=== PATIENT | male | born 1965 | race Caucasian/White ===

== ENCOUNTER 2021-07-08 11:05 | Emergency (ER) | payer OTHER ==
--- NOTE | 2021-07-08 11:13 | ED ---
General Adult HPI - General Stated complaint: Stroke Source: RN notes reviewed, old records reviewed - History of Present Illness Initial comments: Patient is a 55-year-old male with past medical history remarkable for hypertension who presents emergency Department complaining of strokelike symptoms. Last known well was last night prior to going to sleep. Patient states he awoke one time in the middle the night, noticed he had a headache, was unable to stand up but went back to sleep. EMS was called this morning he was on the same location as last night. He currently endorses a mild headache at this time. He endorses left-sided weakness. His no known history of strokes or intracranial process. Accu-Chek was within normal limits upon EMS arrival. He was retching emergency department for strokelike symptoms. He currently denies chest pain, shortness breath, abdominal pain, nausea, vomiting. Denies any visual deficits. Endorses left-sided weakness. - Related Data Allergies Allergy/AdvReac Type Severity Reaction Status Date / Time No Known Allergies Allergy Verified 07/08/21 11:23 Review of Systems ROS Statement: Those systems with pertinent positive or pertinent negative responses have been documented in the HPI. Review of Systems: CONST: Denies fever EYES: Denies blurry vision ENT: Denies nasal congestion C/V: Denies Chest pain RESP: Denies shortness of breath GI: Denies abdominal pain : Denies dysuria SKIN: Denies rash. MSK: Denies joint pain. NEURO: Endorses mild headache. ROS Other: All systems not noted in ROS Statement are negative. General Exam - General Exam Comments Initial Comments: General: Appears in no acute distress. HEAD: Normal with no signs of head trauma. EYES: PERRLA, EOMI, conjunctiva normal, no discharge. Pupils are 3 mm bilaterally. There are Ava. ENT: Hearing grossly intact, normal oropharynx. RESPIRATORY: Clear breath sounds bilaterally. No wheezes, rales, or rhonchi. C/V: Regular rate and rhythm. S1 and S2 auscultated, no edema, peripheral pulses 2+ and intact throughout ABD: Abd is soft, nontender, nondistended EXT: Normal range of motion, no obvious deformity SKIN: No rashes or lesions observed on exposed skin. NEURO: Alert and oriented 4. NIH stroke scale is 8, 2 points for left lower facial droop, 2 points each for left upper and left lower extremity for some effort against gravity, and 2 points for the 2 left limbs ataxia. GCS is 15. Course Vital Signs 07/08/21 07/08/21 07/08/21 11:13 11:15 11:30 Temperature 97.8 F 97.9 F 98.0 F Pulse Rate 72 66 65 Respiratory 18 18 18 Rate Blood Pressure 171/102 162/98 163/103 O2 Sat by Pulse 97 97 97 Oximetry 07/08/21 07/08/21 07/08/21 11:45 12:00 12:10 Temperature 98.0 F 98.0 F 98.0 F Pulse Rate 63 71 71 Respiratory 18 18 18 Rate Blood Pressure 165/100 160/97 154/101 O2 Sat by Pulse 97 97 97 Oximetry Medical Decision Making - Medical Decision Making Based on the patient's presentation and physical exam, I'm not he patient upon arrival to the emergency department. NIH stroke scale was found to be 8 he was immediately taken to CT scanner for imaging. Stroke pager was activated. Stroke labs were ordered.Last known well was last night and therefore this is a wake-up stroke. Because of this, patient is not a TPA candidate. Patient's CT imaging revealed a carotid terminal clot with extension causing the right MCA stroke. There is an evolving infarct in the right MCA hyperdense right MCA. There is no sign of acute intracranial hemorrhage. EKG was completed and showed no signs of acute ischemia. Laboratory studies are still pending at this time. I spoke with the on-call neuro intervention as, Dr. Browne who requested that I start the patient on 300 of Plavix and 325 aspirin. Patient will be started on an IV fluid drip. He'll be transferred to [facility] for thrombectomy. I discussed this with the patient and he was in agreement with this plan. Patient will be transferred in serious condition. Laboratory studies are still pending at this time. Laboratory studies returned and were remarkable for negative troponin, and relatively unremarkable otherwise. Electrolytes are missing for some reason. - Lab Data Result diagrams: 07/08/21 11:25 Lab Results 07/08/21 07/08/21 07/08/21 Range/Units 11:25 11:25 11:25 WBC 11.7 H (3.8-10.6) k/uL RBC 4.63 (4.30-5.90) m/uL Hgb 16.5 (13.0-17.5) gm/dL Hct 46.9 (39.0-53.0) % MCV 101.3 H (80.0-100.0) fL MCH 35.8 H (25.0-35.0) pg MCHC 35.3 (31.0-37.0) g/dL RDW 13.4 (11.5-15.5) % Plt Count 206 (150-450) k/uL MPV 9.4 Neutrophils % 81 % Lymphocytes % 12 % Monocytes % 5 % Eosinophils % 2 % Basophils % 0 % Neutrophils # 9.5 H (1.3-7.7) k/uL Lymphocytes # 1.3 (1.0-4.8) k/uL Monocytes # 0.6 (0-1.0) k/uL Eosinophils # 0.2 (0-0.7) k/uL Basophils # 0.0 (0-0.2) k/uL Macrocytosis Slight PT 10.6 (9.0-12.0) sec INR 1.0 (<1.2) APTT 19.7 L (22.0-30.0) sec Troponin I <0.012 (0.000-0.034) ng/mL - EKG Data -: EKG Interpreted by Me EKG Comments: 12-lead Electrocardiogram Interpretation Note EKG was reviewed and interpreted by myself. 12-lead ECG performed at 1127 is interpreted by me as revealing normal sinus rhythm at a rate of 66 beats per minute. [place] is normal. CT interval is 150 ms, QRS duration 74 ms, QTc is 423 ms.. There are T-wave inversions in lead III and aVF. No Reciprocal changes.. R wave progression across the precordium was satisfactory. By my interpretation this EKG is non-diagnostic for acute ischemia.No prior EKG for comparison. Disposition Clinical Impression: Cerebrovascular accident (CVA) Disposition: OTHER INSTITUTION NOT DEFINED Condition: Serious Is patient prescribed a controlled substance at d/c from ED?: No Referrals: None,Stated [REFERRING] - 1-2 days - Out of Hospital Transfer - Req. Specs Out of Hospital Transfer - Requested Specifics: Other Emergency Center (Transferred for neuro critical intervention and thrombectomy for CVA.)
[2021-07-08 11:24] VITALS: RESP 18
[2021-07-08] MEDS ORDERED: ASPIRIN 325 MG TAB PO STA (11:38)
[2021-07-08] MEDS ORDERED: CLOPIDOGREL 75 MG TAB PO STA (11:38)
[2021-07-08] MEDS ORDERED: SODIUM CHLORIDE 0.9% 1,000 ML IV STA (11:39)
--- NOTE | 2021-07-08 11:41 | CT ---
EXAMINATION TYPE: CT brain wo con for TPA, CT angio head neck DATE OF EXAM: 07/08/2021 COMPARISON: None HISTORY: 55-year-old male neurologic deficit, acute, stroke suspected , left-sided weakness. TECHNIQUE: Examination was done in axial plane without intravenous contrast. Coronal and sagittal r econstructions performed. Subsequently CTA of the head and neck after administration of 75 mL Isovue- 370 IV contrast. Coronal and sagittal MIP reconstructions. 3-D reconstructions generated on a [employer] workstation. CT DLP: 1121.8 mGycm Automated exposure control for dose reduction was used. FINDINGS: HEAD: Hyperdense right MCA. There is cortical and subcortical hypodensity lateral right frontal and anterio r right temporal lobes. Some associated sulcal effacement. No mass effect or midline shift. No hydroc ephalus or extra-axial fluid collection. No herniation. No evidence for acute intracranial hemorrhage. Scattered moderate mucosal thickening ethmoid air cells. Mastoid air cells well pneumatized. Orbits a nd globes are intact. CTA HEAD: Dominant left vertebral artery. The right vertebral artery terminates as a PICA branch. Basilar arter y is patent. Remainder of the posterior circulation appears patent. There is cut off of the M1 right MCA. Otherwise, the internal carotid arteries and remainder of the a nterior circulation appears patent. No aneurysmal changes seen. CTA NECK: Bovine configuration to the aortic arch. Dominant left vertebral artery. The right common carotid artery is patent. There is loose plaque/clot within the right carotid bulb contributing to borderline moderate, approxi mately 50% stenosis by NASCET criteria. Remainder of the right ICA is patent. The left common and internal carotid arteries are patent. COMBINED IMPRESSION: 1. Evolving acute infarct right MCA territory with cortical and subcortical hypodensity lateral right frontal and anterior right temporal lobes. Associated sulcal effacement. No evidence for acute intra cranial hemorrhage. No midline shift or herniation. 2. Acute thrombosis occluding the M1 segment right MCA. 3. Loose plaque/clot within the right carotid bulb within the neck contributing to a borderline moder ate (approximately 50%) proximal right ICA stenosis. Suspected embolic source of the right MCA thromb us. 4. Incidental: Dominant left vertebral artery. The small right vertebral artery appears to terminate as a PICA branch. Critical findings called to Dr. Rodriguez in the ER at 11:28am.
[2021-07-08 11:51] LABS: Basophils % (A) 0 %; Eosinophils # (A) 0.2 k/uL (0-0.7); Eosinophils % (A) 2 %; HCT 46.9 % (39.0-53.0); HGB 16.5 gm/dL (13.0-17.5); Lymphocytes # (A) 1.3 k/uL (1.0-4.8); Lymphocytes % (A) 12 %; MCH 35.8 pg (25.0-35.0); MCHC 35.3 g/dL (31.0-37.0); MCV 101.3 fL (80.0-100.0); Macrocytosis Slight; Mean Platelet Volume 9.4; Monocytes # (A) 0.6 k/uL (0-1.0); Monocytes % (A) 5 %; Neutrophils # (A) 9.5 k/uL (1.3-7.7); Neutrophils % (A) 81 %; Platelet Count 206 k/uL (150-450); RBC 4.63 m/uL (4.30-5.90); RDW 13.4 % (11.5-15.5); WBC 11.7 k/uL (3.8-10.6)
[2021-07-08 12:19] LABS: Prothrombin Time 10.6 sec (9.0-12.0)
[2021-07-08 12:20] LABS: Partial Thromboplastin Time 19.7 sec (22.0-30.0)
[2021-07-08 12:25] VITALS: BP 154/101; PULSE 71; TEMP 98
== END 2021-07-08 12:15 | disposition other institution (70) ==
LOC: EC 11:05
DX: I63.9 Cerebral infarction, unspecified (principal); I10 Essential (primary) hypertension
CPT/HCPCS: 93005; 84484; 85025; 85610; 85730; 70496; 70450; 70498; 99285; Q9967